=== PATIENT | male | born 1965 | race Caucasian/White ===

== ENCOUNTER 2020-10-28 15:05 | Inpatient (IN) | payer OTHER ==
[2020-10-28 15:35] LABS: #Basophils 0.1 thou/uL (0.0-0.2); #Eosinphils 0.3 thou/uL (0.0-0.7); #Lymphocytes 4.2 thou/uL (1.20-3.40); #Monocytes 0.9 thou/uL (0.11-0.59); #Neutrophils 5.3 thou/uL (1.40-6.50); %Basophils 0.7 % (0.0-1.0); %Eosinophils 2.9 % (0.0-10.0); %Lymphocytes 39.1 % (21.0-51.0); %Monocytes 8.5 % (0.0-10.0); %Neutrophils 48.8 % (42.0-75.0); Hemoglobin 15.5 g/dL (14.0-18.0); Mean Corpuscular HGB CONC 34.9 g/dL (32.0-36.0); Mean Corpuscular Hemoglobin 30.9 pg (27.0-31.0); Mean Corpuscular Volume 88.7 fL (78.0-98.0); Mean Platelet Volume 6.4 fL (7.4-10.4); Platelet Count 263 thou/uL (130-400); RBC Distribution Width 11.9 % (11.5-14.5); Red Blood Cell (RBC) Count 5.02 mill/uL (4.70-6.10); White Blood Cell (WBC) Count 10.8 thou/uL (4.8-10.8)
[2020-10-28 15:56] LABS: ALT (SGPT) 18 U/L (8-55); AST (SGOT) 13 U/L (5-34); Albumin 4.2 g/dL (3.5-5.0); Alkaline Phosphatase 46 U/L (40-110); Anion Gap 15 mmol/L (10-20); BUN (Urea Nitrogen) 14 mg/dL (8.4-25.7); Bilirubin, Total 0.8 mg/dL (0.2-1.2); Calc. Creatinine Clearance 0 mL/min (70-130); Calcium 8.7 mg/dL (7.8-10.44); Carbon Dioxide 21 mmol/L (22-29); Chloride 108 mmol/L (98-107); Globulin 2.5 g/dL (2.4-3.5); Glucose 105 mg/dL (70-105); Potassium 3.5 mmol/L (3.5-5.1); Protein, Total 6.7 g/dL (6.0-8.3); Sodium 140 mmol/L (136-145)
[2020-10-28] MEDS ORDERED: Morphine 2 MG/ML VIAL SLOW IVP PRN (16:46)
[2020-10-28] MEDS ORDERED: Dextrose 50% Abboject 50 ML SYRINGE SLOW IVP PRN (16:50)
[2020-10-28] MEDS ORDERED: Dextrose 5% in Water 1,000 ML IV PRN (16:50)
[2020-10-28 19:00] LABS: Troponin I Less than 0.010 ng/mL (< 0.028)
[2020-10-28] MEDS ORDERED: Metoprolol Tartrate 25 MG TAB PO SCH (21:00)
[2020-10-28] MEDS: Gabapentin 300 MG CAP PO SCH (21:53)
[2020-10-28] MEDS: Nitroglycerin 2% Ointment 1 INCH/1 GM Packet TOP SCH (21:54)
[2020-10-28] MEDS: Atorvastatin Calcium 40 MG TAB PO SCH (21:54)
[2020-10-28] MEDS: Metoprolol Tartrate 25 MG TAB PO SCH (21:55)
[2020-10-28] MEDS: Amlodipine 5 MG TAB PO SCH (21:55)
[2020-10-28 21:56] LABS: Troponin I Less than 0.010 ng/mL (< 0.028)
[2020-10-29 03:34] LABS: SARS-CoV-2 NAA Rapid Test Not Detected (NotDetected)
[2020-10-29] MEDS: Nitroglycerin 2% Ointment 1 INCH/1 GM Packet TOP SCH ×3 (06:01→22:39)
[2020-10-29] MEDS ORDERED: Nitroglycerin 4.9 GM Bottle SL PRN (06:40)
[2020-10-29] MEDS ORDERED: Non-Formulary Item 1 EACH (Icosapent Ethyl 1 GM Capsule) PO SCH (08:00)
[2020-10-29] MEDS: Enoxaparin Sodium 60 MG/0.6 ML SYRINGE SC SCH ×2 (08:53→20:28)
[2020-10-29] MEDS: Aspirin 81 mg Enteric Coated Tablet PO SCH (08:53)
[2020-10-29] MEDS: Gabapentin 300 MG CAP PO SCH ×3 (08:54→20:28)
[2020-10-29] MEDS: Losartan 25 MG TAB PO SCH (08:54)
[2020-10-29] MEDS: Metoprolol Tartrate 25 MG TAB PO SCH ×2 (08:54→20:28)
[2020-10-29] MEDS: Icosapent Ethyl 1 GM CAPSULE PO SCH ×2 (08:54→15:44)
[2020-10-29] MEDS: Amlodipine 5 MG TAB PO SCH ×2 (08:54→20:28)
[2020-10-29] MEDS: Polyethylene Glycol 3350 17 GM Packet PO SCH (08:55)
[2020-10-29] MEDS ORDERED: Losartan 25 MG TAB PO SCH (09:00)
[2020-10-29] MEDS: Insulin Regular 300 UNITS/3 ML VIAL SC PRN ×2 (11:38→17:29)
[2020-10-29] MEDS: Atorvastatin Calcium 40 MG TAB PO SCH (20:28)
[2020-10-30] MEDS: Nitroglycerin 2% Ointment 1 INCH/1 GM Packet TOP SCH ×3 (05:57→20:46)
[2020-10-30] MEDS: Gabapentin 300 MG CAP PO SCH ×3 (09:36→20:47)
[2020-10-30] MEDS: Amlodipine 5 MG TAB PO SCH ×2 (09:36→20:46)
[2020-10-30] MEDS: Icosapent Ethyl 1 GM CAPSULE PO SCH ×2 (09:36→16:38)
[2020-10-30] MEDS: Losartan 25 MG TAB PO SCH (09:36)
[2020-10-30] MEDS: Aspirin 81 mg Enteric Coated Tablet PO SCH (09:36)
[2020-10-30] MEDS: Metoprolol Tartrate 25 MG TAB PO SCH ×2 (09:36→20:47)
[2020-10-30] MEDS: Enoxaparin Sodium 60 MG/0.6 ML SYRINGE SC SCH ×2 (09:36→20:47)
[2020-10-30] MEDS: Polyethylene Glycol 3350 17 GM Packet PO SCH (09:37)
[2020-10-30] MEDS: Lantus 1000 UNITS/10 ML VIAL SC SCH (09:38)
[2020-10-30] MEDS: Atorvastatin Calcium 40 MG TAB PO SCH (20:47)
[2020-10-30] MEDS: Melatonin 3 MG TAB PO PRN (22:50)
[2020-10-31] MEDS: Nitroglycerin 2% Ointment 1 INCH/1 GM Packet TOP SCH ×3 (05:43→20:59)
[2020-10-31] MEDS: Icosapent Ethyl 1 GM CAPSULE PO SCH ×2 (08:35→18:06)
[2020-10-31] MEDS: Losartan 25 MG TAB PO SCH (08:36)
[2020-10-31] MEDS: Aspirin 81 mg Enteric Coated Tablet PO SCH (08:36)
[2020-10-31] MEDS: Gabapentin 300 MG CAP PO SCH ×3 (08:36→20:35)
[2020-10-31] MEDS: Amlodipine 5 MG TAB PO SCH ×2 (08:36→20:35)
[2020-10-31] MEDS: Enoxaparin Sodium 60 MG/0.6 ML SYRINGE SC SCH ×2 (08:36→20:35)
[2020-10-31] MEDS: Metoprolol Tartrate 25 MG TAB PO SCH ×2 (08:36→20:35)
[2020-10-31] MEDS: Lantus 1000 UNITS/10 ML VIAL SC SCH (08:37)
[2020-10-31] MEDS: Polyethylene Glycol 3350 17 GM Packet PO SCH (08:37)
[2020-10-31] MEDS: Atorvastatin Calcium 40 MG TAB PO SCH (20:36)
[2020-10-31] MEDS: Melatonin 3 MG TAB PO PRN (20:49)
[2020-11-01] MEDS: Nitroglycerin 2% Ointment 1 INCH/1 GM Packet TOP SCH ×3 (05:40→21:27)
[2020-11-01] MEDS ORDERED: Communication Order-Pharmacy FS SCH (08:17)
[2020-11-01] MEDS: Metoprolol Tartrate 25 MG TAB PO SCH ×2 (08:48→21:27)
[2020-11-01] MEDS: Gabapentin 300 MG CAP PO SCH ×3 (08:48→21:27)
[2020-11-01] MEDS: Losartan 25 MG TAB PO SCH (08:49)
[2020-11-01] MEDS: Enoxaparin Sodium 60 MG/0.6 ML SYRINGE SC SCH ×2 (08:49→21:25)
[2020-11-01] MEDS: Amlodipine 5 MG TAB PO SCH ×2 (08:49→21:26)
[2020-11-01] MEDS: Aspirin 81 mg Enteric Coated Tablet PO SCH (08:49)
[2020-11-01] MEDS: Icosapent Ethyl 1 GM CAPSULE PO SCH ×2 (08:49→17:04)
[2020-11-01] MEDS: Lantus 1000 UNITS/10 ML VIAL SC SCH (08:50)
[2020-11-01] MEDS: Polyethylene Glycol 3350 17 GM Packet PO SCH (08:50)
[2020-11-01] MEDS: Insulin Regular 300 UNITS/3 ML VIAL SC PRN ×2 (18:55→21:28)
[2020-11-01] MEDS: Atorvastatin Calcium 40 MG TAB PO SCH (21:26)
[2020-11-01] MEDS: Melatonin 3 MG TAB PO PRN (21:26)
[2020-11-02] MEDS: Nitroglycerin 2% Ointment 1 INCH/1 GM Packet TOP SCH ×3 (05:34→21:21)
[2020-11-02] MEDS: Enoxaparin Sodium 60 MG/0.6 ML SYRINGE SC SCH (07:53)
[2020-11-02] MEDS: Amlodipine 5 MG TAB PO SCH ×2 (07:54→21:23)
[2020-11-02] MEDS: Metoprolol Tartrate 25 MG TAB PO SCH ×2 (07:54→21:23)
[2020-11-02] MEDS: Losartan 25 MG TAB PO SCH (07:54)
[2020-11-02] MEDS: Gabapentin 300 MG CAP PO SCH ×3 (07:54→21:21)
[2020-11-02] MEDS: Aspirin 81 mg Enteric Coated Tablet PO SCH (07:54)
[2020-11-02] MEDS: Icosapent Ethyl 1 GM CAPSULE PO SCH ×2 (07:56→18:40)
[2020-11-02] MEDS: Polyethylene Glycol 3350 17 GM Packet PO SCH (07:57)
[2020-11-02] MEDS: Lantus 1000 UNITS/10 ML VIAL SC SCH (07:57)
[2020-11-02] MEDS: Insulin Regular 300 UNITS/3 ML VIAL SC PRN ×2 (12:17→21:24)
[2020-11-02] MEDS: Atorvastatin Calcium 40 MG TAB PO SCH (21:23)
[2020-11-02] MEDS: Melatonin 3 MG TAB PO PRN (21:23)
[2020-11-03] MEDS: Icosapent Ethyl 1 GM CAPSULE PO SCH (06:03)
[2020-11-03] MEDS: Nitroglycerin 2% Ointment 1 INCH/1 GM Packet TOP SCH (06:04)
[2020-11-03] MEDS: Losartan 25 MG TAB PO SCH (06:05)
[2020-11-03] MEDS: Amlodipine 5 MG TAB PO SCH (07:54)
[2020-11-03] MEDS: Metoprolol Tartrate 25 MG TAB PO SCH (07:55)
[2020-11-03] MEDS: Aspirin 81 mg Enteric Coated Tablet PO SCH (07:55)
[2020-11-03] MEDS: Lantus 1000 UNITS/10 ML VIAL SC SCH (07:56)
[2020-11-03] MEDS: Polyethylene Glycol 3350 17 GM Packet PO SCH (07:57)
[2020-11-03] MEDS: Gabapentin 300 MG CAP PO SCH (07:57)
[2020-11-03] MEDS ORDERED: Albumin 5% 500 ML ONE (08:17)
[2020-11-03] MEDS ORDERED: Midazolam HCl 2 mg/2 ml Vial ONE (09:01)
[2020-11-03] MEDS ORDERED: Sodium Chloride 0.9% 10 ML ONE (09:25)
[2020-11-03] MEDS ORDERED: Sodium Bicarb 50 MEQ/50 ML Abboject 8.4% SYRINGE ONE (09:42)
[2020-11-03] MEDS ORDERED: Heparin 30,000 units/30 ml VIAL ONE (09:42)
[2020-11-03] MEDS ORDERED: Aminocaproic Acid 5 GM/20 ML VIAL ONE (09:42)
[2020-11-03] MEDS ORDERED: Cardioplegic Soln 1,000 ML BAG ONE (09:42)
[2020-11-03] MEDS ORDERED: Rocuronium Bromide 10 MG/ML (10ML VIAL) ONE (09:42)
[2020-11-03] MEDS ORDERED: Mannitol 12.5 GM/50 ML ONE (09:42)
[2020-11-03] MEDS ORDERED: Calcium Chloride 1 GM/10 ML Abboject SYRINGE ONE (09:42)
[2020-11-03] MEDS ORDERED: Potassium Chloride 60 MEQ/30 ML VIAL ONE (09:42)
[2020-11-03] MEDS ORDERED: Vecuronium 10 MG VIAL ONE (09:42)
[2020-11-03] MEDS ORDERED: Protamine Sulfate 250 MG/25 ML VIAL ONE (09:42)
[2020-11-03] MEDS ORDERED: PROPOFOL 200 MG/20 ML VIAL ONE (09:42)
[2020-11-03] MEDS ORDERED: Papaverine 60 MG/2 ML VIAL ONE (09:42)
[2020-11-03] MEDS ORDERED: Lidocaine 1% PF 5 ML VIAL ONE (09:42)
[2020-11-03] MEDS ORDERED: Lidocaine 2% PF 100 mg/5 ml Syringe ONE (09:42)
[2020-11-03] MEDS ORDERED: Thrombin 5000 UNITS/5 ML VIAL ONE (09:42)
[2020-11-03] MEDS ORDERED: Magnesium Sulfate 1 GM/2 ML VIAL ONE (09:42)
[2020-11-03] MEDS ORDERED: Heparin 5,000 UNITS/ML VIAL ONE (09:42)
[2020-11-03] MEDS ORDERED: Midazolam HCl 5 mg/5 ml Vial ONE ×2 (09:55→12:14)
[2020-11-03] MEDS ORDERED: Fentanyl 250 MCG/5 ML VIAL ONE ×3 (09:55→12:14)
[2020-11-03] MEDS ORDERED: Dexmedetomidine 200 MCG/2 ML VIAL ONE (09:56)
[2020-11-03] MEDS ORDERED: Propofol 1,000 MG/100 ML VIAL IV ONE ×2 (10:54→13:48)
[2020-11-03] MEDS ORDERED: PHENYLEPHRINE-NS 100 MCG/ML 10 ML SYRINGE ONE (11:11)
[2020-11-03] MEDS ORDERED: Insulin Regular 300 UNITS/3 ML VIAL ONE (12:51)
[2020-11-03] MEDS ORDERED: Nitroglycerin 50 MG/250 ML BOT 250 ML ONE (13:32)
[2020-11-03] MEDS ORDERED: hydrALAZINE 20 MG/ML VIAL ONE (13:37)
[2020-11-03] MEDS ORDERED: Nitroprusside 50 MG in Dextrose 5% in Water 248 ML IVPB PRN (13:45)
[2020-11-03] MEDS ORDERED: Nitroglycerin 50 MG/250 ML BOT 250 ML IVPB PRN (14:28)
[2020-11-03] MEDS ORDERED: Post-Op Insulin Drip Protocol IVPB ONE (14:28)
[2020-11-03] MEDS ORDERED: hydrALAZINE 20 MG/ML VIAL SLOW IVP PRN (14:28)
[2020-11-03] MEDS ORDERED: Acetaminophen 325 MG TAB PO PRN (14:28)
[2020-11-03] MEDS ORDERED: Guaifenesin DM 100-10/5 ML UDCUP PO PRN (14:28)
[2020-11-03] MEDS ORDERED: Mag-Al 1200 mg/1200 mg/30 ML UDCUP PO PRN (14:28)
[2020-11-03] MEDS ORDERED: Norepinephrine 8 MG/0.9% NS 250 ML IVPB PRN (14:28)
[2020-11-03] MEDS ORDERED: Bisacodyl 5 MG TAB PO PRN (14:28)
[2020-11-03] MEDS ORDERED: Hetastarch 6% 500 ML 500 ML IVPB PRN (14:28)
[2020-11-03] MEDS ORDERED: Morphine 2 MG/ML VIAL SLOW IVP PRN (14:28)
[2020-11-03] MEDS ORDERED: HYDROcodone/Acetaminophen 5/325 mg Tablet PO PRN (14:28)
[2020-11-03] MEDS ORDERED: Bisacodyl 10 MG SUPP PR PRN (14:28)
[2020-11-03] MEDS ORDERED: Promethazine HCl 25 MG/ML VIAL IM PRN (14:28)
[2020-11-03] MEDS ORDERED: niCARdipine 25 MG in Sodium Chloride 0.9% 250 ML 250 ML IVPB PRN (14:28)
[2020-11-03] MEDS ORDERED: DOPamine 400 MG/D5W 250 ML 250 ML IVPB PRN (14:28)
[2020-11-03] MEDS ORDERED: Magnesium 2 GM/50 ML 2 GM in Premix Bag 1 BAG IVPB SCH (14:30)
[2020-11-03] MEDS: Lactated Ringer's 1,000 ML IV SCH (14:57)
[2020-11-03] MEDS ORDERED: HUMULIN R 100 UNITS in Sodium Chloride 0.9% 100 ML IVPB SCH (15:00)
[2020-11-03] MEDS ORDERED: Dextrose 50% Abboject 50 ML SYRINGE SLOW IVP PRN (15:00)
[2020-11-03] MEDS ORDERED: Lantus 1000 UNITS/10 ML VIAL SC PRN (15:00)
[2020-11-03] MEDS ORDERED: Dextrose 5% in Water 1,000 ML IV PRN (15:00)
[2020-11-03 15:12] LABS: Actual Bicarbonate (HCO3a) 19.5 mEq/L (22-28); Base Excess (BEa) -5.5 mEq/L (-2.0 to +3.0); CO2 Tension 36.5 mmHg (35.0-45.0); Calcium, Ionized (arterial) 1.19 mmol/L (1.12-1.30); Carboxyhemoglobin (COHb) 0.9 gm% (0.0-3.0); O2 Tension (PaO2), arterial 73.6 mmHg (80.0-100.0); Potassium - ABG Lab 3.82 mmol/L (3.70-5.30); Puncture Site Arterial Line; pH, Arterial 7.35 (7.35-7.45)
[2020-11-03 15:14] LABS: ALV-art Gradient 237.275 mmHg (0-20)
[2020-11-03] MEDS ORDERED: CEFAZOLIN 2 GM in Premix Bag 1 BAG IVPB SCH (15:15)
[2020-11-03 15:26] LABS: #Basophils 0.1 thou/uL (0.0-0.2); #Eosinphils 0.5 thou/uL (0.0-0.7); #Lymphocytes 3.2 thou/uL (1.20-3.40); #Monocytes 1.4 thou/uL (0.11-0.59); #Neutrophils 13.5 thou/uL (1.40-6.50); %Basophils 0.5 % (0.0-1.0); %Eosinophils 2.5 % (0.0-10.0); %Monocytes 7.6 % (0.0-10.0); %Neutrophils 72.4 % (42.0-75.0); Mean Corpuscular HGB CONC 34.9 g/dL (32.0-36.0); Mean Corpuscular Hemoglobin 31.7 pg (27.0-31.0); Mean Corpuscular Volume 90.8 fL (78.0-98.0); Mean Platelet Volume 7.1 fL (7.4-10.4); Platelet Count 203 thou/uL (130-400); RBC Distribution Width 12.1 % (11.5-14.5); Red Blood Cell (RBC) Count 4.43 mill/uL (4.70-6.10); White Blood Cell (WBC) Count 18.6 thou/uL (4.8-10.8)
[2020-11-03 15:31] LABS: INR-International Normal Ratio 1.2; Prothrombin Time 15.8 sec (12.0-14.7)
[2020-11-03] MEDS: Fentanyl 100 MCG/2 ML VIAL SLOW IVP PRN ×5 (15:32→22:02)
[2020-11-03 15:39] LABS: Anion Gap 11 mmol/L (10-20); BUN (Urea Nitrogen) 9 mg/dL (8.4-25.7); Calc. Creatinine Clearance 156 mL/min (70-130); Calcium 8.4 mg/dL (7.8-10.44); Carbon Dioxide 20 mmol/L (22-29); Chloride 112 mmol/L (98-107); Glucose 145 mg/dL (70-105); Potassium 4.1 mmol/L (3.5-5.1); Sodium 139 mmol/L (136-145)
[2020-11-03] MEDS: Insulin Regular 300 UNITS/3 ML VIAL SC PRN (15:46)
[2020-11-03] MEDS: CEFAZOLIN 2 GM in Premix Bag 1 BAG IVPB SCH (16:39)
[2020-11-03] MEDS: Ketorolac Tromethamine 30 MG/ML VIAL IVP SCH (17:23)
[2020-11-03 17:43] LABS: Actual Bicarbonate (HCO3a) 19.3 mEq/L (22-28); Base Excess (BEa) -4.6 mEq/L (-2.0 to +3.0); CO2 Tension 32.4 mmHg (35.0-45.0); Calcium, Ionized (arterial) 1.13 mmol/L (1.12-1.30); Carboxyhemoglobin (COHb) 0.3 gm% (0.0-3.0); Hemoglobin (Hb) 14.8 g/dL (14.0-18.0); O2 Tension (PaO2), arterial 101.9 mmHg (80.0-100.0); pH, Arterial 7.39 (7.35-7.45)
[2020-11-03 20:10] LABS: Hemoglobin 13.4 g/dL (14.0-18.0)
[2020-11-03] MEDS: HYDROcodone/Acetaminophen 5/325 mg Tablet PO PRN (20:14)
[2020-11-03] MEDS: Pregabalin 75 MG CAP PO SCH (20:16)
[2020-11-03] MEDS: Famotidine/PF 20 mg/2ml Vial SLOW IVP SCH (20:17)
[2020-11-03 20:25] LABS: Potassium 3.7 mmol/L (3.5-5.1)
[2020-11-03] MEDS: Potassium Chloride 20 MEQ/100 ML PREMIX BAG IVPB PRN (20:48)
[2020-11-03] MEDS ORDERED: Atorvastatin Calcium 20 MG TAB PO SCH (21:00)
[2020-11-04] MEDS: Ketorolac Tromethamine 30 MG/ML VIAL IVP SCH ×5 (00:09→23:21)
[2020-11-04] MEDS: HYDROcodone/Acetaminophen 5/325 mg Tablet PO PRN ×6 (00:10→23:23)
[2020-11-04] MEDS: CEFAZOLIN 2 GM in Premix Bag 1 BAG IVPB SCH ×2 (00:11→08:15)
[2020-11-04] MEDS: Fentanyl 100 MCG/2 ML VIAL SLOW IVP PRN ×5 (01:59→20:00)
[2020-11-04] MEDS: Lactated Ringer's 1,000 ML IV SCH (03:51)
[2020-11-04 04:48] LABS: #Eosinphils 0.1 thou/uL (0.0-0.7); #Lymphocytes 2.3 thou/uL (1.20-3.40); #Monocytes 1.2 thou/uL (0.11-0.59); #Neutrophils 8.9 thou/uL (1.40-6.50); %Basophils 0.3 % (0.0-1.0); %Eosinophils 0.5 % (0.0-10.0); %Lymphocytes 18.8 % (21.0-51.0); %Monocytes 9.5 % (0.0-10.0); %Neutrophils 70.9 % (42.0-75.0); Hemoglobin 11.6 g/dL (14.0-18.0); Mean Corpuscular HGB CONC 33.8 g/dL (32.0-36.0); Mean Corpuscular Hemoglobin 30.7 pg (27.0-31.0); Mean Corpuscular Volume 90.9 fL (78.0-98.0); Platelet Count 188 thou/uL (130-400); RBC Distribution Width 12.3 % (11.5-14.5); Red Blood Cell (RBC) Count 3.78 mill/uL (4.70-6.10); White Blood Cell (WBC) Count 12.5 thou/uL (4.8-10.8)
[2020-11-04 04:56] LABS: Anion Gap 10 mmol/L (10-20); BUN (Urea Nitrogen) 12 mg/dL (8.4-25.7); Calc. Creatinine Clearance 161 mL/min (70-130); Calcium 8.1 mg/dL (7.8-10.44); Carbon Dioxide 21 mmol/L (22-29); Chloride 111 mmol/L (98-107); Glucose 122 mg/dL (70-105); Magnesium 1.9 mg/dL (1.6-2.6); Potassium 3.9 mmol/L (3.5-5.1); Sodium 138 mmol/L (136-145)
[2020-11-04] MEDS ORDERED: Fentanyl CADD 0 ML ONE (05:38)
[2020-11-04 05:45] LABS: Puncture Site Arterial Line
[2020-11-04] MEDS: Ondansetron PF 4 MG/2 ML Vial IVP PRN ×2 (06:39→12:42)
[2020-11-04] MEDS: Potassium Chloride 20 MEQ/100 ML PREMIX BAG IVPB PRN (07:22)
[2020-11-04] MEDS: Polyethylene Glycol 3350 17 GM Packet PO SCH (08:14)
[2020-11-04] MEDS: Pregabalin 75 MG CAP PO SCH ×2 (08:15→20:54)
[2020-11-04] MEDS: Famotidine/PF 20 mg/2ml Vial SLOW IVP SCH ×2 (08:15→20:55)
[2020-11-04] MEDS: Empagliflozin 25 MG TAB PO SCH (08:15)
[2020-11-04] MEDS: Aspirin 325 MG TAB PO SCH (08:15)
[2020-11-04] MEDS ORDERED: Magnesium 2 GM/50 ML 2 GM in Premix Bag 1 BAG IVPB SCH (08:45)
[2020-11-04] MEDS: Insulin Regular 300 UNITS/3 ML VIAL SC PRN (09:08)
[2020-11-04] MEDS: Atorvastatin Calcium 40 MG TAB PO SCH (20:54)
[2020-11-05] MEDS: HYDROcodone/Acetaminophen 5/325 mg Tablet PO PRN ×4 (03:45→21:06)
[2020-11-05 04:31] LABS: #Eosinphils 0.4 thou/uL (0.0-0.7); #Lymphocytes 2.6 thou/uL (1.20-3.40); #Monocytes 1.3 thou/uL (0.11-0.59); #Neutrophils 6.6 thou/uL (1.40-6.50); %Basophils 0.4 % (0.0-1.0); %Eosinophils 3.4 % (0.0-10.0); %Lymphocytes 23.7 % (21.0-51.0); %Monocytes 11.7 % (0.0-10.0); %Neutrophils 60.8 % (42.0-75.0); Hemoglobin 12.5 g/dL (14.0-18.0); Mean Corpuscular HGB CONC 34.3 g/dL (32.0-36.0); Mean Corpuscular Hemoglobin 31.6 pg (27.0-31.0); Mean Corpuscular Volume 92.1 fL (78.0-98.0); Mean Platelet Volume 7.1 fL (7.4-10.4); Platelet Count 173 thou/uL (130-400); RBC Distribution Width 12.5 % (11.5-14.5); Red Blood Cell (RBC) Count 3.96 mill/uL (4.70-6.10); White Blood Cell (WBC) Count 10.9 thou/uL (4.8-10.8)
[2020-11-05 04:48] LABS: Anion Gap 9 mmol/L (10-20); BUN (Urea Nitrogen) 8 mg/dL (8.4-25.7); Calc. Creatinine Clearance 150 mL/min (70-130); Calcium 8.5 mg/dL (7.8-10.44); Carbon Dioxide 27 mmol/L (22-29); Chloride 108 mmol/L (98-107); Glucose 148 mg/dL (70-105); Potassium 3.7 mmol/L (3.5-5.1); Sodium 140 mmol/L (136-145)
[2020-11-05] MEDS: Ketorolac Tromethamine 30 MG/ML VIAL IVP SCH ×3 (06:03→17:40)
[2020-11-05] MEDS: Fentanyl 100 MCG/2 ML VIAL SLOW IVP PRN (06:04)
[2020-11-05] MEDS ORDERED: Polyethylene Glycol 3350 17 GM Packet PO PRN (08:08)
[2020-11-05] MEDS: Senokot S 8.6-50 MG TAB PO SCH ×2 (08:37→20:42)
[2020-11-05] MEDS: Polyethylene Glycol 3350 17 GM Packet PO SCH (08:37)
[2020-11-05] MEDS: Aspirin 325 MG TAB PO SCH (08:38)
[2020-11-05] MEDS: Empagliflozin 25 MG TAB PO SCH (08:38)
[2020-11-05] MEDS: Pregabalin 75 MG CAP PO SCH ×2 (08:38→20:44)
[2020-11-05] MEDS: Famotidine/PF 20 mg/2ml Vial SLOW IVP SCH (08:40)
[2020-11-05] MEDS: Potassium Chloride 20 MEQ/100 ML PREMIX BAG IVPB PRN (08:40)
[2020-11-05] MEDS ORDERED: diphenhydrAMINE 25 MG CAP PO PRN (10:46)
[2020-11-05] MEDS ORDERED: Zolpidem Tartrate 5 MG TAB PO PRN (10:46)
[2020-11-05] MEDS ORDERED: Nitroglycerin 0.4 MG TAB (25 Tab Bottle) SL PRN (10:46)
[2020-11-05] MEDS: Nitroglycerin 2% Ointment 1 INCH/1 GM Packet TOP SCH (11:44)
[2020-11-05] MEDS: Insulin Regular 300 UNITS/3 ML VIAL SC PRN (17:40)
[2020-11-05] MEDS: Atorvastatin Calcium 40 MG TAB PO SCH (20:42)
[2020-11-05] MEDS ORDERED: Atorvastatin Calcium 20 MG TAB PO SCH (21:00)
[2020-11-05] MEDS ORDERED: Metoprolol Tartrate 25 MG TAB PO SCH (21:00)
[2020-11-06] MEDS: Ketorolac Tromethamine 30 MG/ML VIAL IVP SCH ×2 (00:05→05:35)
[2020-11-06] MEDS: HYDROcodone/Acetaminophen 5/325 mg Tablet PO PRN ×5 (01:21→20:52)
[2020-11-06] MEDS: Insulin Regular 300 UNITS/3 ML VIAL SC PRN ×4 (01:30→20:54)
[2020-11-06] MEDS: Aspirin 325 MG TAB PO SCH (08:20)
[2020-11-06] MEDS: Senokot S 8.6-50 MG TAB PO SCH ×2 (08:20→20:53)
[2020-11-06] MEDS: Losartan 25 MG TAB PO SCH (08:20)
[2020-11-06] MEDS: Pregabalin 75 MG CAP PO SCH ×2 (08:21→20:53)
[2020-11-06] MEDS: Polyethylene Glycol 3350 17 GM Packet PO SCH (08:23)
[2020-11-06] MEDS ORDERED: Metoprolol Tartrate 25 MG TAB PO SCH (09:00)
[2020-11-06 10:19] VITALS: BMI 27.6
[2020-11-06] MEDS ORDERED: Clopidogrel Bisulfate 300 MG TAB PO SCH (18:30)
[2020-11-06] MEDS: Metoprolol Tartrate 50 MG TAB PO SCH (20:54)
[2020-11-06] MEDS: Atorvastatin Calcium 40 MG TAB PO SCH (20:54)
[2020-11-07] MEDS: HYDROcodone/Acetaminophen 5/325 mg Tablet PO PRN ×2 (03:13→08:27)
[2020-11-07] MEDS: Pregabalin 75 MG CAP PO SCH (08:22)
[2020-11-07] MEDS: Losartan 25 MG TAB PO SCH (08:22)
[2020-11-07] MEDS: Polyethylene Glycol 3350 17 GM Packet PO SCH (08:26)
[2020-11-07] MEDS: Senokot S 8.6-50 MG TAB PO SCH (08:26)
[2020-11-07] MEDS: Metoprolol Tartrate 50 MG TAB PO SCH (08:26)
[2020-11-07] MEDS: Aspirin 325 MG TAB PO SCH (08:26)
[2020-11-07] MEDS ORDERED: Clopidogrel Bisulfate 75 MG TAB PO SCH (09:00)
[2020-11-07] MEDS ORDERED: Pregabalin 75 MG CAP PO SCH (09:45)
[2020-11-07] MEDS: Insulin Regular 300 UNITS/3 ML VIAL SC PRN (11:40)
[2020-11-07 11:48] VITALS: BP 113/60; TEMP 98.6
== END 2020-11-07 13:45 | disposition home or self-care (01) | DRG 236 ==
LOC: ERS 15:05 → 2NO 16:34 → CCU 11-03 08:18 → 2NO 11-05 12:09
PROVIDERS: ADMIT Internal Medicine; ATTEND Internal Medicine
PROC: 02100Z9 Bypass Coronary Artery, One Artery from Left Internal Mammary, Open Approach (ICD-10-PCS; principal; 2020-11-03)
PROC: 021209W Bypass Coronary Artery, Three Arteries from Aorta with Autologous Venous Tissue, Open Approach (ICD-10-PCS; 2020-11-03)
PROC: 06BQ4ZZ Excision of Left Saphenous Vein, Percutaneous Endoscopic Approach (ICD-10-PCS; 2020-11-03)
PROC: 5A1221Z Performance of Cardiac Output, Continuous (ICD-10-PCS; 2020-11-03)
DX: I25.110 Atherosclerotic heart disease of native coronary artery with unstable angina pectoris (principal); Z20.822 Contact with and (suspected) exposure to COVID-19; E78.5 Hyperlipidemia, unspecified; E78.00 Pure hypercholesterolemia, unspecified; I10 Essential (primary) hypertension; F17.210 Nicotine dependence, cigarettes, uncomplicated; G47.33 Obstructive sleep apnea (adult) (pediatric); E87.6 Hypokalemia; E83.42 Hypomagnesemia; K59.00 Constipation, unspecified; Z95.5 Presence of coronary angioplasty implant and graft; Z88.8 Allergy status to other drugs, medicaments and biological substances; Z79.82 Long term (current) use of aspirin; Z79.84 Long term (current) use of oral hypoglycemic drugs; Z79.899 Other long term (current) drug therapy; Z90.49 Acquired absence of other specified parts of digestive tract; Z98.890 Other specified postprocedural states
CPT/HCPCS: 36415; 36416; 36430; 71045; 80048; 80053; 82805; 83735; 84484; 85025; 85610; 85730; 86850; 86900; 86901; 93005; 93010; 93798; 94002; 94150; 97139; J0360; J0690; J1642; J1644; J1650; J1815; J1885; J2001; J2150; J2250; J2405; J2440; J2704; J2720; J3010; J3370; J3475; J3480; J3490; P9045; S0017; S0028; U0002; U0005